=== PATIENT | female | born 1940 | race African-American/Black ===

== ENCOUNTER 2021-11-08 22:26 | Inpatient (IN) | payer MEDICARE, MEDICAID ==
[~2021-11-08] VITALS: Ht 160 cm; Wt 54.4 kg
[~2021-11-08 22:26] MED LIST: ACET650S25 PO; AMLO5TAB88 PO; FERR325T6 MT; HYDR-4135 PO
[2021-11-09] VITALS (8 sets, daily range): BP systolic 136–156; BP diastolic 54–84
[2021-11-09] MEDS ORDERED: SODIUM CHLORIDE 0.9% 1000ML BAG (SEPSIS BOLUS) IV ONE
[2021-11-09 01:36] LABS: HEMATOCRIT. 21.8 % (36.0-48.0); MEAN CORPUSCULAR HEMOGLOBIN 24.1 pg (28.0-32.0); MEAN CORPUSCULAR VOLUME 75.9 fL (81.0-99.0); MEAN PLATELET VOLUME 7.3 fl (7.4-10.4); PLATELET 629 x1000/uL (130-400); RED BLOOD CELL COUNT 2.87 mill/uL (4.2-5.4); RED CELL DISTRIBUTION WIDTH 19.1 % (11.6-14.6)
[2021-11-09 01:40] LABS: HEMOGLOBIN. 6.9 g/dL (12.0-16.0)
[2021-11-09 01:44] LABS: CHLORIDE 104 mEq/L (98-107)
[2021-11-09] MEDS ORDERED: CEFTRIAXONE 1 G PREMIX 50 ML IV ONE (02:30)
[2021-11-09 03:53] LABS: PLATELET ESTIMATE INCREASED
[2021-11-09] MEDS ORDERED: ONDANSETRON HCL 4MG/2ML INJ IV PRN (07:45)
[2021-11-09] MEDS ORDERED: MORPHINE SULFATE 2 MG/ML CPJ (NOT FOR IM USE) IV PRN (07:45)
[2021-11-09] MEDS ORDERED: PIPERACILLIN/TAZ 3.375G PREMIX 50 ML IV NR (08:00)
[2021-11-09] MEDS ORDERED: NALOXONE HCL 0.4MG/ML VIAL IV PRN (08:30)
[2021-11-09] MEDS: PIPERACILLIN/TAZOBACTAM 3.375 G in DEXTROSE 5% WATER 50 ML IV SCH (13:45)
[2021-11-09] MEDS: DEXT 5%/0.45% NACL 1000ML 1,000 ML IV SCH ×2 (13:45→21:05)
[2021-11-09] MEDS ORDERED: PIPERACILLIN/TAZOBACTAM 3.375 G in DEXTROSE 5% WATER 50 ML IV SCH (14:00)
[2021-11-10] VITALS (10 sets, daily range): BP systolic 145–160; BP diastolic 64–83
[2021-11-10] MEDS: PIPERACILLIN/TAZOBACTAM 3.375 G in DEXTROSE 5% WATER 50 ML IV SCH ×4 (01:06→21:26)
[2021-11-10 06:49] LABS: HEMATOCRIT. 24.3 % (36.0-48.0); MEAN CORPUSCULAR HEMOGLOBIN 25.4 pg (28.0-32.0); MEAN CORPUSCULAR VOLUME 76.8 fL (81.0-99.0); MEAN PLATELET VOLUME 7.4 fl (7.4-10.4); PLATELET 543 x1000/uL (130-400); RED BLOOD CELL COUNT 3.17 mill/uL (4.2-5.4)
[2021-11-10 07:25] LABS: CHLORIDE 111 mEq/L (98-107)
[2021-11-10] MEDS: DEXT 5%/0.45% NACL 1000ML 1,000 ML IV SCH ×2 (10:24→23:45)
[2021-11-10 16:28] LABS: PLATELET ESTIMATE INCREASED
[2021-11-10 17:00] LABS: HEMATOCRIT 32.1 % (36.0-48.0); HEMOGLOBIN 10.5 g/dL (12.0-16.0)
[2021-11-10] MEDS ORDERED: POLYMYXIN B SULFATE 500000 UNITS/VIAL ONE (19:48)
[2021-11-10] MEDS ORDERED: BUPIVACAINE HCL 0.5% (5MG/ML) 50ML ONE (19:48)
[2021-11-10] MEDS ORDERED: LIDOCAINE HCL 1% 50ML VIAL (10MG/ML) ONE (19:48)
[2021-11-11] VITALS: BP 155/76
[2021-11-11 04:00] VITALS: BP 153/74
[2021-11-11] MEDS: PIPERACILLIN/TAZOBACTAM 3.375 G in DEXTROSE 5% WATER 50 ML IV SCH ×3 (06:00→21:10)
[2021-11-11 06:30] LABS: HEMATOCRIT. 29.3 % (36.0-48.0); HEMOGLOBIN. 9.6 g/dL (12.0-16.0); MEAN CORPUSCULAR HEMOGLOBIN 25.5 pg (28.0-32.0); MEAN CORPUSCULAR VOLUME 78.1 fL (81.0-99.0); MEAN PLATELET VOLUME 7.4 fl (7.4-10.4); PLATELET 448 x1000/uL (130-400); RED BLOOD CELL COUNT 3.75 mill/uL (4.2-5.4); RED CELL DISTRIBUTION WIDTH 17.5 % (11.6-14.6)
[2021-11-11 07:08] LABS: CHLORIDE 113 mEq/L (98-107)
[2021-11-11 08:00] VITALS: BP 162/83
[2021-11-11] MEDS ORDERED: POTASSIUM CHLORIDE 20MEQ/PACKET PO SCH (09:00)
[2021-11-11 11:51] VITALS: BP 156/69
[2021-11-11] MEDS: AMLODIPINE 10MG TABLET PO SCH (11:52)
[2021-11-11] MEDS: DEXT 5%/0.45% NACL 1000ML 1,000 ML IV SCH (13:44)
[2021-11-11 16:00] VITALS: BP 146/75
[2021-11-11 20:00] VITALS: BP 162/82
[2021-11-11 21:24] LABS: PLATELET ESTIMATE INCREASED
[2021-11-12] VITALS: BP 144/77
[2021-11-12] MEDS: DEXT 5%/0.45% NACL 1000ML 1,000 ML IV SCH ×2 (02:25→15:45)
[2021-11-12 04:00] VITALS: BP 141/82
[2021-11-12 08:00] VITALS: BP 160/88
[2021-11-12] MEDS ORDERED: POTASSIUM CHLORIDE 20MEQ/PACKET PO SCH (09:00)
[2021-11-12] MEDS: AMLODIPINE 10MG TABLET PO SCH (09:29)
[2021-11-12] MEDS: PIPERACILLIN/TAZOBACTAM 3.375 G in DEXTROSE 5% WATER 50 ML IV SCH ×3 (10:22→21:19)
[2021-11-12 12:00] VITALS: BP 163/84
[2021-11-12] MEDS: HYDRALAZINE HCL 50MG TABLET PO SCH ×2 (13:46→21:19)
[2021-11-12 16:00] VITALS: BP 153/73
[2021-11-12 18:40] LABS: CLARITY URINE CLEAR (CLEAR); COLOR URINE YELLOW (YELLOW); KETONES URINE NEGATIVE (NEGATIVE); LEUKOCYTE ESTERASE URINE NEGATIVE (NEGATIVE); NITRITE URINE NEGATIVE (NEGATIVE); OCCULT BLOOD URINE NEGATIVE (NEGATIVE); PH URINE 5.5 (4.5-8.0); PROTEIN URINE TRACE (NEGATIVE); SPECIFIC GRAVITY URINE 1.015 (1.005-1.030); UROBILINOGEN URINE 0.2 E.U./dL (0.2-1.0)
[2021-11-12 20:00] VITALS: BP 143/70
[2021-11-13] VITALS: BP 148/70
[2021-11-13 08:00] VITALS: BP 146/70
[2021-11-13] MEDS: HYDRALAZINE HCL 50MG TABLET PO SCH ×3 (09:00→21:00)
[2021-11-13] MEDS: AMLODIPINE 10MG TABLET PO SCH (09:00)
[2021-11-13 12:00] VITALS: BP 141/60
[2021-11-13] MEDS: PIPERACILLIN/TAZOBACTAM 3.375 G in DEXTROSE 5% WATER 50 ML IV SCH (14:16)
[2021-11-13 16:00] VITALS: BP 149/87
[2021-11-13 18:28] LABS: EOSINOPHILS % 0.2 % (0.0-5.0); HEMOGLOBIN. 9.8 g/dL (12.0-16.0); LYMPHOCYTES % 9.4 % (20.0-50.0); MEAN CORPUSCULAR HEMOGLOBIN 25.7 pg (28.0-32.0); MEAN PLATELET VOLUME 7.1 fl (7.4-10.4); MONOCYTES % 8.3 % (2.0-8.0); NEUTROPHILS % 82.1 % (40.0-76.0); PLATELET 370 x1000/uL (130-400); RED CELL DISTRIBUTION WIDTH 18.6 % (11.6-14.6)
[2021-11-13 18:35] LABS: CHLORIDE 115 mEq/L (98-107)
[2021-11-13] MEDS ORDERED: POTASSIUM CHLORIDE 20MEQ TABLET SR PO NR (19:45)
[2021-11-13 20:00] VITALS: BP 152/77
[2021-11-13] MEDS ORDERED: PROPOFOL 200MG/20ML VIAL IV ONE (21:50)
[2021-11-13] MEDS ORDERED: MIDAZOLAM HCL 2 MG/2 ML VIAL ONE (21:53)
[2021-11-13] MEDS ORDERED: SUCCINYLCHOLINE CHLORIDE 200MG/10ML IV ONE (22:27)
[2021-11-13] MEDS ORDERED: LIDOCAINE HCL 1% 10 MG/ML 10ML VIAL ONE (22:27)
[2021-11-13] MEDS ORDERED: DEXAMETHASONE 4MG/ML 1ML VIAL ONE (22:27)
[2021-11-13] MEDS ORDERED: ONDANSETRON HCL 4MG/2ML INJ ONE (22:27)
[2021-11-13] MEDS ORDERED: SODIUM CHLORIDE 0.9% 1,000 ML IV SCH (22:45)
[2021-11-13] MEDS ORDERED: ATROPINE SULFATE 1MG/10ML SYR IV PRN (22:45)
[2021-11-13] MEDS ORDERED: CEFAZOLIN SODIUM 1000MG/VIAL ONE (22:45)
[2021-11-13] MEDS ORDERED: FENTANYL CITRATE/PF 50MCG/ML 2ML VIAL IV PRN (22:45)
[2021-11-13] MEDS ORDERED: FENTANYL CITRATE/PF 50MCG/ML 2ML VIAL ONE (22:46)
[2021-11-14] MEDS: PIPERACILLIN/TAZOBACTAM 3.375 G in DEXTROSE 5% WATER 50 ML IV SCH ×2 (01:41→06:13)
[2021-11-14 04:00] VITALS: BP 143/68
[2021-11-14 07:12] LABS: HEMATOCRIT. 28.3 % (36.0-48.0); HEMOGLOBIN. 9.3 g/dL (12.0-16.0); MEAN CORPUSCULAR HEMOGLOBIN 26.2 pg (28.0-32.0); MEAN CORPUSCULAR VOLUME 79.3 fL (81.0-99.0); MEAN PLATELET VOLUME 7.5 fl (7.4-10.4); PLATELET 338 x1000/uL (130-400); RED BLOOD CELL COUNT 3.57 mill/uL (4.2-5.4); RED CELL DISTRIBUTION WIDTH 18.6 % (11.6-14.6)
[2021-11-14 07:27] LABS: CHLORIDE 114 mEq/L (98-107)
[2021-11-14 08:00] VITALS: BP 146/77
[2021-11-14] MEDS: AMLODIPINE 10MG TABLET PO SCH (09:25)
[2021-11-14] MEDS: HYDRALAZINE HCL 50MG TABLET PO SCH ×2 (09:25→20:50)
[2021-11-14 12:00] VITALS: BP 122/65
[2021-11-14 16:00] VITALS: BP 138/60
[2021-11-14 20:00] VITALS: BP 158/81
[2021-11-14] MEDS: DEXT 5%/0.45% NACL 1000ML 1,000 ML IV SCH (20:49)
[2021-11-14] MEDS: MULTIVITAMINS,THER W-MINERALS TABLET PO SCH (20:50)
[2021-11-15] VITALS: BP 144/73
[2021-11-15 04:00] VITALS: BP 146/86
[2021-11-15 08:00] VITALS: BP 135/74
[2021-11-15] MEDS: HYDRALAZINE HCL 50MG TABLET PO SCH ×2 (09:12→21:43)
[2021-11-15] MEDS: AMLODIPINE 10MG TABLET PO SCH (09:12)
[2021-11-15] MEDS: MULTIVITAMINS,THER W-MINERALS TABLET PO SCH (09:12)
[2021-11-15] MEDS: DEXT 5%/0.45% NACL 1000ML 1,000 ML IV SCH ×2 (09:13→21:45)
[2021-11-15 12:00] VITALS: BP 127/58
[2021-11-15 14:21] LABS: PLATELET ESTIMATE NORMAL
[2021-11-15 16:00] VITALS: BP 146/80
[2021-11-15] MEDS: PIPERACILLIN/TAZOBACTAM 3.375 G in DEXTROSE 5% WATER 50 ML IV SCH (18:46)
[2021-11-15 20:00] VITALS: BP 132/61
[2021-11-16] VITALS: BP 155/78
[2021-11-16] MEDS: PIPERACILLIN/TAZOBACTAM 3.375 G in DEXTROSE 5% WATER 50 ML IV SCH ×4 (00:38→22:00)
[2021-11-16 04:00] VITALS: BP 126/60
[2021-11-16 08:00] VITALS: BP 105/57
[2021-11-16] MEDS: MULTIVITAMINS,THER W-MINERALS TABLET PO SCH (08:37)
[2021-11-16 12:00] VITALS: BP 137/59
[2021-11-16] MEDS: DEXT 5%/0.45% NACL 1000ML 1,000 ML IV SCH (14:46)
[2021-11-16] MEDS: HYDRALAZINE HCL 50MG TABLET PO SCH ×2 (14:46→20:40)
[2021-11-16] MEDS: AMLODIPINE 10MG TABLET PO SCH (14:46)
[2021-11-16 16:00] VITALS: BP 128/60
[2021-11-16 20:00] VITALS: BP 127/68
[2021-11-16 21:16] LABS: BASOPHILS % 0.2 % (0.0-2.0); EOSINOPHILS % 0.1 % (0.0-5.0); HEMATOCRIT. 26.4 % (36.0-48.0); HEMOGLOBIN. 8.2 g/dL (12.0-16.0); LYMPHOCYTES % 9.1 % (20.0-50.0); MEAN CORPUSCULAR HEMOGLOBIN 25.7 pg (28.0-32.0); MEAN CORPUSCULAR VOLUME 82.3 fL (81.0-99.0); MEAN PLATELET VOLUME 8.4 fl (7.4-10.4); MONOCYTES % 5.9 % (2.0-8.0); NEUTROPHILS % 84.7 % (40.0-76.0); PLATELET 274 x1000/uL (130-400); RED BLOOD CELL COUNT 3.21 mill/uL (4.2-5.4); RED CELL DISTRIBUTION WIDTH 19.8 % (11.6-14.6)
[2021-11-16 21:21] LABS: CHLORIDE 114 mEq/L (98-107)
[2021-11-17] VITALS: BP 121/62
[2021-11-17] MEDS: DEXT 5%/0.45% NACL 1000ML 1,000 ML IV SCH ×2 (02:25→15:45)
[2021-11-17 04:00] VITALS: BP 132/65
[2021-11-17] MEDS: PIPERACILLIN/TAZOBACTAM 3.375 G in DEXTROSE 5% WATER 50 ML IV SCH ×3 (05:35→21:15)
[2021-11-17] MEDS: MULTIVITAMINS,THER W-MINERALS TABLET PO SCH (08:30)
[2021-11-17] MEDS: HYDRALAZINE HCL 50MG TABLET PO SCH ×2 (08:31→21:16)
[2021-11-17] MEDS: AMLODIPINE 10MG TABLET PO SCH (08:31)
[2021-11-17] MEDS: FLUOXETINE HCL 10 MG CAPSULE PO SCH (16:55)
[2021-11-17 18:11] VITALS: BP 125/85
[2021-11-17 20:00] VITALS: BP 130/69
[2021-11-18] VITALS: BP 123/64
[2021-11-18 04:00] VITALS: BP 139/62
[2021-11-18] MEDS: PIPERACILLIN/TAZOBACTAM 3.375 G in DEXTROSE 5% WATER 50 ML IV SCH ×2 (04:55→13:37)
[2021-11-18] MEDS: DEXT 5%/0.45% NACL 1000ML 1,000 ML IV SCH (04:55)
[2021-11-18 07:58] VITALS: BP 135/64
[2021-11-18] MEDS: HYDRALAZINE HCL 50MG TABLET PO SCH (08:36)
[2021-11-18] MEDS: FLUOXETINE HCL 10 MG CAPSULE PO SCH (08:36)
[2021-11-18] MEDS: MULTIVITAMINS,THER W-MINERALS TABLET PO SCH (08:36)
[2021-11-18] MEDS: AMLODIPINE 10MG TABLET PO SCH (08:37)
[2021-11-18] MEDS ORDERED: HYDROXYZINE 10 MG TABLET PO PRN (11:00)
[2021-11-18 11:53] VITALS: BP 132/66
[2021-11-18 15:11] VITALS: BP 138/67
[2021-11-18 16:00] VITALS: BP 130/62
== END 2021-11-18 20:46 | DRG 853 ==
LOC: ER 22:26 → 6WST 23:04 → ENRESERV 11-09 07:15
PROVIDERS: ADMIT Internal Medicine; ATTEND Internal Medicine
PROC: 30233N1 Transfusion of Nonautologous Red Blood Cells into Peripheral Vein, Percutaneous Approach (ICD-10-PCS; 2021-11-09)
PROC: 0KBP0ZZ Excision of Left Hip Muscle, Open Approach (ICD-10-PCS; principal; 2021-11-13)
PROC: 0KBN0ZZ Excision of Right Hip Muscle, Open Approach (ICD-10-PCS; 2021-11-13)
DX: A41.9 Sepsis, unspecified organism (principal); E43 Unspecified severe protein-calorie malnutrition; L89.154 Pressure ulcer of sacral region, stage 4; K63.1 Perforation of intestine (nontraumatic); E87.1 Hypo-osmolality and hyponatremia; C19 Malignant neoplasm of rectosigmoid junction; I96 Gangrene, not elsewhere classified; J44.9 Chronic obstructive pulmonary disease, unspecified; B96.4 Proteus (mirabilis) (morganii) as the cause of diseases classified elsewhere; Z20.822 Contact with and (suspected) exposure to COVID-19; B96.20 Unspecified Escherichia coli [E. coli] as the cause of diseases classified elsewhere; R32 Unspecified urinary incontinence; D50.9 Iron deficiency anemia, unspecified; F41.1 Generalized anxiety disorder; I10 Essential (primary) hypertension; D25.9 Leiomyoma of uterus, unspecified; Z85.3 Personal history of malignant neoplasm of breast; Z86.16 Personal history of COVID-19; Z90.10 Acquired absence of unspecified breast and nipple; Z86.718 Personal history of other venous thrombosis and embolism; Z86.711 Personal history of pulmonary embolism; Z68.21 Body mass index [BMI] 21.0-21.9, adult
CPT/HCPCS: 36415; 71045; 74176; 80048; 80053; 81003; 83605; 84145; 84484; 85014; 85018; 85025; 86850; 86870; 86900; 86920; 87070; 87075; 87076; 87077; 87186; 87426; 93005; 99291; C1893; C9803; J0330; J0690; J0696; J1100; J2250; J2270; J2405; J2543; J2704; J3010; J3490; J7030; J7060; P9016; A4315; A5200

== ENCOUNTER 2021-12-02 23:22 | Inpatient (IN) | payer MEDICARE, MEDICAID ==
[~2021-12-02] VITALS: Ht 160 cm; Wt 47.6 kg
[2021-12-03 00:49] LABS: EOSINOPHILS % 0.3 % (0.0-5.0); HEMOGLOBIN. 7.5 g/dL (12.0-16.0); LYMPHOCYTES % 12.7 % (20.0-50.0); MEAN CORPUSCULAR VOLUME 79.4 fL (81.0-99.0); MONOCYTES % 10.4 % (2.0-8.0); NEUTROPHILS % 76.6 % (40.0-76.0); PLATELET 501 x1000/uL (130-400); RED BLOOD CELL COUNT 3.02 mill/uL (4.2-5.4)
[2021-12-03 00:56] LABS: CHLORIDE 111 mEq/L (98-107)
[2021-12-03 01:42] LABS: INR 1.1; PARTIAL THROMBOPLASTIN TIME 25.9 sec (23.4-31.0); PROTHROMBIN TIME 11.3 sec (9.6-11.0)
[2021-12-03] MEDS ORDERED: ASPIRIN 325MG EC TABLET PO NR (01:45)
[2021-12-03 13:30] VITALS: BP 131/68
[2021-12-03 20:00] VITALS: BP 156/71
[2021-12-03] MEDS ORDERED: GUAIFENESIN 200MG/10ML SUGAR FREE UDC PO PRN (20:15)
[2021-12-03] MEDS ORDERED: ACETAMINOPHEN 325MG TABLET PO PRN (20:15)
[2021-12-03] MEDS ORDERED: MAGNESIUM/ALUMINUM HYDROXIDE/SIMETHICONE 30ML UDC PO PRN (20:15)
[2021-12-03] MEDS ORDERED: DOCUSATE SODIUM 100MG CAPSULE PO PRN (20:15)
[2021-12-03] MEDS ORDERED: ONDANSETRON HCL 4MG/2ML INJ IV PRN (20:15)
[2021-12-03 20:41] LABS: TOTAL IRON BINDING CAPACITY 93 ug/dL (250-450)
[2021-12-03] MEDS: POTASSIUM CHLORIDE 20MEQ TABLET SR PO SCH (22:02)
[2021-12-03] MEDS: HYDRALAZINE HCL 50MG TABLET PO SCH (22:02)
[2021-12-03] MEDS: TRAMADOL 50MG TABLET PO PRN (23:47)
[2021-12-04] VITALS (12 sets, daily range): BP systolic 118–144; BP diastolic 62–78
[2021-12-04 07:20] LABS: EOSINOPHILS % 0.1 % (0.0-5.0); LYMPHOCYTES % 9.7 % (20.0-50.0); MEAN CORPUSCULAR HEMOGLOBIN 24.9 pg (28.0-32.0); MEAN CORPUSCULAR VOLUME 79.4 fL (81.0-99.0); MEAN PLATELET VOLUME 8.1 fl (7.4-10.4); MONOCYTES % 9.1 % (2.0-8.0); NEUTROPHILS % 81.1 % (40.0-76.0); PLATELET 520 x1000/uL (130-400); RED BLOOD CELL COUNT 2.67 mill/uL (4.2-5.4); RED CELL DISTRIBUTION WIDTH 19.5 % (11.6-14.6)
[2021-12-04 07:48] LABS: HEMATOCRIT. 21.2 % (36.0-48.0); HEMOGLOBIN. 6.6 g/dL (12.0-16.0)
[2021-12-04 08:01] LABS: CLARITY URINE CLOUDY (CLEAR); COLOR URINE YELLOW (YELLOW); KETONES URINE NEGATIVE (NEGATIVE); LEUKOCYTE ESTERASE URINE 3+ (NEGATIVE); NITRITE URINE POSITIVE (NEGATIVE); OCCULT BLOOD URINE NEGATIVE (NEGATIVE); PH URINE 5.5 (4.5-8.0); PROTEIN URINE 1+ (NEGATIVE); SPECIFIC GRAVITY URINE 1.013 (1.005-1.030); UROBILINOGEN URINE 0.2 E.U./dL (0.2-1.0)
[2021-12-04 08:47] LABS: CHLORIDE 114 mEq/L (98-107)
[2021-12-04 08:58] LABS: HDL CHOLESTEROL 25 mg/dL (40-59); LDL CHOLESTEROL 49 mg/dL (5-100)
[2021-12-04] MEDS: TRAMADOL 50MG TABLET PO PRN ×2 (09:55→20:25)
[2021-12-04] MEDS: AMLODIPINE 10MG TABLET PO SCH (09:56)
[2021-12-04] MEDS: POTASSIUM CHLORIDE 20MEQ TABLET SR PO SCH (09:56)
[2021-12-04] MEDS: HYDRALAZINE HCL 50MG TABLET PO SCH ×2 (09:59→22:24)
[2021-12-04 10:42] LABS: PHOSPHORUS 2.9 mg/dL (2.5-4.9)
[2021-12-04] MEDS ORDERED: VANCOMYCIN 1GM PMX (XELLIA) 200 ML IV SCH (14:00)
[2021-12-04] MEDS: PIPERACILLIN/TAZOBACTAM 3.375 G in DEXTROSE 5% WATER 50 ML IV SCH ×2 (17:26→22:06)
[2021-12-04 17:59] LABS: HEMATOCRIT 22.7 % (36.0-48.0)
[2021-12-04 18:07] LABS: HEMOGLOBIN 6.9 g/dL (12.0-16.0)
[2021-12-05] VITALS: BP 128/71
[2021-12-05 04:00] VITALS: BP 102/72
[2021-12-05] MEDS: VANCOMYCIN 750MG PMX (XELLIA) 150 ML IV SCH (05:00)
[2021-12-05] MEDS: PIPERACILLIN/TAZOBACTAM 3.375 G in DEXTROSE 5% WATER 50 ML IV SCH ×3 (06:24→23:16)
[2021-12-05 06:58] LABS: HEMATOCRIT 26.6 % (36.0-48.0); MEAN CORPUSCULAR HEMOGLOBIN 26.8 pg (28.0-32.0); MEAN CORPUSCULAR VOLUME 81.5 fL (81.0-99.0); PLATELET 467 x1000/uL (130-400); RED BLOOD CELL COUNT 3.27 mill/uL (4.2-5.4); RED CELL DISTRIBUTION WIDTH 18.3 % (11.6-14.6)
[2021-12-05 07:07] LABS: CHLORIDE 117 mEq/L (98-107)
[2021-12-05 08:00] VITALS: BP 138/69
[2021-12-05] MEDS ORDERED: FLUCONAZOLE 150MG TABLET PO NR (08:00)
[2021-12-05] MEDS: POTASSIUM CHLORIDE 20MEQ TABLET SR PO SCH (08:34)
[2021-12-05] MEDS: AMLODIPINE 10MG TABLET PO SCH (08:38)
[2021-12-05] MEDS: HYDRALAZINE HCL 50MG TABLET PO SCH ×2 (08:39→23:17)
[2021-12-05 08:43] LABS: HEMOGLOBIN 8.8 g/dL (12.0-16.0)
[2021-12-05] MEDS: TRAMADOL 50MG TABLET PO PRN ×2 (08:43→17:42)
[2021-12-05 12:00] VITALS: BP 140/70
[2021-12-05 16:00] VITALS: BP 132/68
[2021-12-05 20:00] VITALS: BP 135/63
[2021-12-05] MEDS ORDERED: NALOXONE HCL 0.4MG/ML VIAL IV PRN (20:15)
[2021-12-06] VITALS: BP 133/77
[2021-12-06] MEDS: VANCOMYCIN 750MG PMX (XELLIA) 150 ML IV SCH ×2 (02:05→15:35)
[2021-12-06] MEDS: PIPERACILLIN/TAZOBACTAM 3.375 G in DEXTROSE 5% WATER 50 ML IV SCH ×3 (07:21→21:00)
[2021-12-06 08:00] VITALS: BP 114/58
[2021-12-06 08:44] LABS: CHLORIDE 114 mEq/L (98-107)
[2021-12-06 08:53] LABS: PHOSPHORUS 2.6 mg/dL (2.5-4.9)
[2021-12-06] MEDS: POTASSIUM CHLORIDE 20MEQ TABLET SR PO SCH (09:00)
[2021-12-06 09:44] LABS: BASOPHILS % 0.1 % (0.0-2.0); EOSINOPHILS % 0.3 % (0.0-5.0); HEMATOCRIT. 27.6 % (36.0-48.0); HEMOGLOBIN. 8.9 g/dL (12.0-16.0); LYMPHOCYTES % 7.7 % (20.0-50.0); MEAN CORPUSCULAR HEMOGLOBIN 26.5 pg (28.0-32.0); MEAN CORPUSCULAR VOLUME 82.2 fL (81.0-99.0); MONOCYTES % 5.7 % (2.0-8.0); NEUTROPHILS % 86.2 % (40.0-76.0); PLATELET 493 x1000/uL (130-400); RED BLOOD CELL COUNT 3.36 mill/uL (4.2-5.4)
[2021-12-06] MEDS: TRAMADOL 50MG TABLET PO PRN (10:06)
[2021-12-06] MEDS: HYDRALAZINE HCL 50MG TABLET PO SCH ×2 (10:07→21:00)
[2021-12-06] MEDS: AMLODIPINE 10MG TABLET PO SCH (10:07)
[2021-12-06 12:00] VITALS: BP 100/60
[2021-12-06] MEDS ORDERED: SODIUM CHLORIDE 0.9% 1000ML BAG (SEPSIS BOLUS) IV ONE (17:15)
[2021-12-06] MEDS ORDERED: SODIUM CHLORIDE 0.9% 1,000 ML IV SCH (17:15)
[2021-12-06 17:48] LABS: HEMATOCRIT. 29.7 % (36.0-48.0); HEMOGLOBIN. 9.3 g/dL (12.0-16.0); MEAN CORPUSCULAR HEMOGLOBIN 25.8 pg (28.0-32.0); MEAN CORPUSCULAR VOLUME 82.6 fL (81.0-99.0); PLATELET 552 x1000/uL (130-400)
[2021-12-06 20:00] VITALS: BP 101/71
[2021-12-06] MEDS ORDERED: SODIUM CHLORIDE 0.9% 1000ML BAG (SEPSIS BOLUS) IV SCH (22:45)
[2021-12-06 23:00] LABS: PLATELET ESTIMATE INCREASED
[2021-12-07 04:00] VITALS: BP 154/76
[2021-12-07] MEDS: VANCOMYCIN 750MG PMX (XELLIA) 150 ML IV SCH ×2 (05:46→18:22)
[2021-12-07] MEDS: PIPERACILLIN/TAZOBACTAM 3.375 G in DEXTROSE 5% WATER 50 ML IV SCH ×3 (06:43→21:04)
[2021-12-07 07:17] LABS: CHLORIDE 117 mEq/L (98-107)
[2021-12-07 08:00] VITALS: BP 111/67
[2021-12-07] MEDS: HYDRALAZINE HCL 50MG TABLET PO SCH ×2 (08:26→21:03)
[2021-12-07] MEDS: POTASSIUM CHLORIDE 20MEQ TABLET SR PO SCH (08:26)
[2021-12-07] MEDS: AMLODIPINE 10MG TABLET PO SCH (08:26)
[2021-12-07] MEDS: TRAMADOL 50MG TABLET PO PRN (10:50)
[2021-12-07] MEDS ORDERED: POTASSIUM CHLORIDE 20MEQ TABLET SR PO NR (11:14)
[2021-12-07 12:00] VITALS: BP 121/60
[2021-12-07] MEDS ORDERED: SODIUM CHLORIDE 0.9% 500 ML IV ONE (12:15)
[2021-12-07] MEDS: HYDROCODONE/APAP 7.5/325MG 1 TAB TABLET PO PRN ×2 (13:08→21:06)
[2021-12-07 16:00] VITALS: BP 118/62
[2021-12-07 18:29] LABS: CREATINE KINASE MB FRACTION 2.8 ng/mL (0.5-3.6)
[2021-12-07 20:00] VITALS: BP 144/79
[2021-12-07] MEDS ORDERED: FAMOTIDINE 20MG/2ML VIAL IV SCH (21:00)
[2021-12-07] MEDS: METOPROLOL TARTRATE 50MG TABLET PO SCH (21:04)
[2021-12-07 23:59] VITALS: BP 112/61
[2021-12-08 03:25] LABS: CHLORIDE 118 mEq/L (98-107)
[2021-12-08 04:00] VITALS: BP 113/59
[2021-12-08] MEDS: VANCOMYCIN 750MG PMX (XELLIA) 150 ML IV SCH ×2 (05:14→18:35)
[2021-12-08 06:44] LABS: BASOPHILS % 0.1 % (0.0-2.0); EOSINOPHILS % 0.7 % (0.0-5.0); HEMATOCRIT. 26.9 % (36.0-48.0); HEMOGLOBIN. 8.5 g/dL (12.0-16.0); LYMPHOCYTES % 10.8 % (20.0-50.0); MEAN CORPUSCULAR HEMOGLOBIN 25.8 pg (28.0-32.0); MEAN CORPUSCULAR VOLUME 82.3 fL (81.0-99.0); MONOCYTES % 6.7 % (2.0-8.0); NEUTROPHILS % 81.7 % (40.0-76.0); PLATELET 477 x1000/uL (130-400); RED BLOOD CELL COUNT 3.27 mill/uL (4.2-5.4); RED CELL DISTRIBUTION WIDTH 19.3 % (11.6-14.6)
[2021-12-08] MEDS: PIPERACILLIN/TAZOBACTAM 3.375 G in DEXTROSE 5% WATER 50 ML IV SCH ×3 (06:49→21:07)
[2021-12-08 08:15] VITALS: BP 121/57
[2021-12-08] MEDS: HYDRALAZINE HCL 50MG TABLET PO SCH ×2 (08:47→20:58)
[2021-12-08] MEDS: METOPROLOL TARTRATE 50MG TABLET PO SCH ×2 (08:47→20:59)
[2021-12-08] MEDS: POTASSIUM CHLORIDE 20MEQ TABLET SR PO SCH (08:47)
[2021-12-08] MEDS: AMLODIPINE 10MG TABLET PO SCH (08:48)
[2021-12-08 12:04] VITALS: BP 107/42
[2021-12-08 16:00] VITALS: BP 107/42
[2021-12-08] MEDS ORDERED: SODIUM HYPOCHLORITE 0.125% 473ML SOLUTION TOP PRN (16:30)
[2021-12-08] MEDS: FAMOTIDINE 20MG TABLET PO SCH (17:11)
[2021-12-08] MEDS: SODIUM HYPOCHLORITE 0.125% 473ML SOLUTION TOP SCH (18:35)
[2021-12-08 20:00] VITALS: BP 102/51
[2021-12-08] MEDS: HYDROCODONE/APAP 7.5/325MG 1 TAB TABLET PO PRN (21:06)
[2021-12-09] VITALS: BP 112/51
[2021-12-09] MEDS: VANCOMYCIN 750MG PMX (XELLIA) 150 ML IV SCH ×2 (05:00→17:08)
[2021-12-09] MEDS: PIPERACILLIN/TAZOBACTAM 3.375 G in DEXTROSE 5% WATER 50 ML IV SCH ×2 (06:30→13:00)
[2021-12-09 07:27] LABS: HEMATOCRIT 26.6 % (36.0-48.0); HEMOGLOBIN 8.4 g/dL (12.0-16.0); MEAN CORPUSCULAR HEMOGLOBIN 25.9 pg (28.0-32.0); MEAN CORPUSCULAR VOLUME 82.2 fL (81.0-99.0); PLATELET 487 x1000/uL (130-400); RED BLOOD CELL COUNT 3.23 mill/uL (4.2-5.4)
[2021-12-09 07:31] LABS: CHLORIDE 118 mEq/L (98-107)
[2021-12-09] MEDS: HYDRALAZINE HCL 50MG TABLET PO SCH ×2 (08:07→23:13)
[2021-12-09] MEDS: METOPROLOL TARTRATE 50MG TABLET PO SCH ×2 (08:08→23:13)
[2021-12-09] MEDS: AMLODIPINE 10MG TABLET PO SCH (08:08)
[2021-12-09 08:32] VITALS: BP 108/48
[2021-12-09] MEDS: POTASSIUM CHLORIDE 20MEQ TABLET SR PO SCH (08:58)
[2021-12-09] MEDS: SODIUM HYPOCHLORITE 0.125% 473ML SOLUTION TOP SCH (08:58)
[2021-12-09 11:57] VITALS: BP 138/64
[2021-12-09 15:45] VITALS: BP 124/61
[2021-12-09] MEDS: FAMOTIDINE 20MG TABLET PO SCH (17:08)
[2021-12-09 20:00] VITALS: BP 111/54
[2021-12-09] MEDS: HYDROCODONE/APAP 7.5/325MG 1 TAB TABLET PO PRN (20:03)
[2021-12-09] MEDS: CEFTRIAXONE 2 G in DEXTROSE 5% WATER 50 ML IV SCH (23:12)
[2021-12-10] VITALS: BP 120/61
[2021-12-10 04:00] VITALS: BP 101/52
[2021-12-10 07:23] LABS: HEMATOCRIT 27.6 % (36.0-48.0); HEMOGLOBIN 8.7 g/dL (12.0-16.0); MEAN CORPUSCULAR HEMOGLOBIN 26.1 pg (28.0-32.0); MEAN CORPUSCULAR VOLUME 82.5 fL (81.0-99.0); PLATELET 391 x1000/uL (130-400); RED BLOOD CELL COUNT 3.34 mill/uL (4.2-5.4); RED CELL DISTRIBUTION WIDTH 19.2 % (11.6-14.6)
[2021-12-10 07:40] LABS: CHLORIDE 117 mEq/L (98-107)
[2021-12-10 08:30] VITALS: BP 140/68
[2021-12-10] MEDS: HYDRALAZINE HCL 50MG TABLET PO SCH ×2 (09:15→20:20)
[2021-12-10] MEDS: POTASSIUM CHLORIDE 20MEQ TABLET SR PO SCH (09:15)
[2021-12-10] MEDS: METOPROLOL TARTRATE 50MG TABLET PO SCH ×2 (09:15→20:20)
[2021-12-10] MEDS: SODIUM HYPOCHLORITE 0.125% 473ML SOLUTION TOP SCH (09:15)
[2021-12-10 16:15] VITALS: BP 122/57
[2021-12-10] MEDS: FAMOTIDINE 20MG TABLET PO SCH (17:32)
[2021-12-10 20:00] VITALS: BP 135/65
[2021-12-10] MEDS: CEFTRIAXONE 2 G in DEXTROSE 5% WATER 50 ML IV SCH (20:20)
[2021-12-11] VITALS: BP 121/57
[2021-12-11 04:00] VITALS: BP 127/76
[2021-12-11 08:20] VITALS: BP 117/51
[2021-12-11] MEDS ORDERED: CLOPIDOGREL 75MG TABLET PO SCH (09:00)
[2021-12-11] MEDS: POTASSIUM CHLORIDE 20MEQ TABLET SR PO SCH (09:01)
[2021-12-11] MEDS: ASPIRIN 81MG TABLET PO SCH (09:02)
[2021-12-11] MEDS: HYDRALAZINE HCL 50MG TABLET PO SCH ×2 (09:02→21:46)
[2021-12-11] MEDS: SODIUM HYPOCHLORITE 0.125% 473ML SOLUTION TOP SCH (09:02)
[2021-12-11] MEDS: METOPROLOL TARTRATE 50MG TABLET PO SCH ×2 (09:04→21:47)
[2021-12-11 12:05] VITALS: BP 120/52
[2021-12-11] MEDS: FAMOTIDINE 20MG TABLET PO SCH (15:32)
[2021-12-11 15:49] VITALS: BP 130/86
[2021-12-11 20:00] VITALS: BP 130/61
[2021-12-11] MEDS: CEFTRIAXONE 2 G in DEXTROSE 5% WATER 50 ML IV SCH (21:46)
[2021-12-12] VITALS: BP 117/53
[2021-12-12 07:14] LABS: HEMATOCRIT 26.7 % (36.0-48.0); HEMOGLOBIN 8.7 g/dL (12.0-16.0); MEAN CORPUSCULAR HEMOGLOBIN 26.5 pg (28.0-32.0); MEAN CORPUSCULAR VOLUME 81.2 fL (81.0-99.0); PLATELET 422 x1000/uL (130-400); RED BLOOD CELL COUNT 3.28 mill/uL (4.2-5.4); RED CELL DISTRIBUTION WIDTH 19.2 % (11.6-14.6)
[2021-12-12 07:17] LABS: CHLORIDE 115 mEq/L (98-107)
[2021-12-12 08:00] VITALS: BP 141/55
[2021-12-12] MEDS ORDERED: POTASSIUM CHLORIDE 20MEQ/PACKET PO SCH (10:30)
[2021-12-12] MEDS: HYDRALAZINE HCL 50MG TABLET PO SCH (10:43)
[2021-12-12] MEDS: METOPROLOL TARTRATE 50MG TABLET PO SCH (10:43)
[2021-12-12] MEDS: ASPIRIN 81MG TABLET PO SCH (10:43)
[2021-12-12] MEDS: SODIUM HYPOCHLORITE 0.125% 473ML SOLUTION TOP SCH (10:44)
[2021-12-12 11:40] VITALS: BP 141/55
[2021-12-12] MEDS ORDERED: POTASSIUM CHLORIDE INJ 40 MEQ in DEXT 5% WATER 250 ML IV ONE (12:00)
== END 2021-12-12 14:42 | DRG 853 ==
LOC: EDUNIT# 23:22 → ER 23:22 → 6WST 12-03 04:50 → ENRESERV 12-03 08:05
PROVIDERS: ADMIT Hospitalist; ATTEND Hospitalist
PROC: 30233N1 Transfusion of Nonautologous Red Blood Cells into Peripheral Vein, Percutaneous Approach (ICD-10-PCS; principal; 2021-12-04)
PROC: 0LBW0ZZ Excision of Left Foot Tendon, Open Approach (ICD-10-PCS; 2021-12-09)
PROC: 0QB10ZZ Excision of Sacrum, Open Approach (ICD-10-PCS; 2021-12-09)
DX: A41.50 Gram-negative sepsis, unspecified (principal); E43 Unspecified severe protein-calorie malnutrition; L89.154 Pressure ulcer of sacral region, stage 4; L89.623 Pressure ulcer of left heel, stage 3; N39.0 Urinary tract infection, site not specified; I47.1 Supraventricular tachycardia; I50.20 Unspecified systolic (congestive) heart failure; Z68.1 Body mass index [BMI] 19.9 or less, adult; D63.8 Anemia in other chronic diseases classified elsewhere; Z20.822 Contact with and (suspected) exposure to COVID-19; F03.90 Unspecified dementia, unspecified severity, without behavioral disturbance, psychotic disturbance, mood disturbance, and anxiety; E87.6 Hypokalemia; I11.0 Hypertensive heart disease with heart failure; E88.09 Other disorders of plasma-protein metabolism, not elsewhere classified; D50.9 Iron deficiency anemia, unspecified; E03.8 Other specified hypothyroidism; I73.9 Peripheral vascular disease, unspecified; B96.89 Other specified bacterial agents as the cause of diseases classified elsewhere; B96.20 Unspecified Escherichia coli [E. coli] as the cause of diseases classified elsewhere; B96.1 Klebsiella pneumoniae [K. pneumoniae] as the cause of diseases classified elsewhere; Z90.11 Acquired absence of right breast and nipple; Z79.899 Other long term (current) drug therapy; Z85.038 Personal history of other malignant neoplasm of large intestine; Z68.20 Body mass index [BMI] 20.0-20.9, adult; Z86.718 Personal history of other venous thrombosis and embolism; Z95.828 Presence of other vascular implants and grafts
CPT/HCPCS: 36415; 71045; 72192; 80048; 80053; 80061; 80202; 81003; 82553; 82728; 83036; 83540; 83550; 83605; 83735; 83880; 84100; 84134; 84145; 84439; 84443; 84484; 85014; 85018; 85025; 85027; 86850; 86870; 86900; 86920; 87077; 87186; 87426; 93005; 93308; 93923; 97162; 97165; 99291; C1893; J0696; J2543; J3370; J3480; J3490; J7060; P9016

== ENCOUNTER 2021-12-25 17:46 | Inpatient (IN) | payer MEDICARE, MEDICAID ==
[~2021-12-25] VITALS: Ht 160 cm; Wt 51.7 kg
[2021-12-25 22:12] LABS: BASOPHILS % 0.1 % (0.0-2.0); EOSINOPHILS % 0.1 % (0.0-5.0); LYMPHOCYTES % 16.9 % (20.0-50.0); MEAN CORPUSCULAR HEMOGLOBIN 26.4 pg (28.0-32.0); MEAN CORPUSCULAR VOLUME 80.9 fL (81.0-99.0); MEAN PLATELET VOLUME 7.4 fl (7.4-10.4); MONOCYTES % 8.6 % (2.0-8.0); NEUTROPHILS % 74.3 % (40.0-76.0); PLATELET 529 x1000/uL (130-400); RED BLOOD CELL COUNT 2.45 mill/uL (4.2-5.4); RED CELL DISTRIBUTION WIDTH 20.2 % (11.6-14.6)
[2021-12-25 22:15] LABS: HEMATOCRIT. 19.8 % (36.0-48.0); HEMOGLOBIN. 6.5 g/dL (12.0-16.0)
[2021-12-25 22:24] LABS: CHLORIDE 104 mEq/L (98-107)
[2021-12-25 22:45] LABS: CLARITY URINE CLOUDY (CLEAR); COLOR URINE YELLOW (YELLOW); KETONES URINE NEGATIVE (NEGATIVE); LEUKOCYTE ESTERASE URINE 1+ (NEGATIVE); NITRITE URINE POSITIVE (NEGATIVE); OCCULT BLOOD URINE NEGATIVE (NEGATIVE); PH URINE 5.5 (4.5-8.0); PROTEIN URINE NEGATIVE (NEGATIVE); SPECIFIC GRAVITY URINE 1.013 (1.005-1.030); UROBILINOGEN URINE 0.2 E.U./dL (0.2-1.0)
[2021-12-25] MEDS ORDERED: CLONIDINE 0.1MG TABLET PO PRN (23:45)
[2021-12-25] MEDS ORDERED: ACETAMINOPHEN 325MG TABLET PO PRN ×2 (23:45)
[2021-12-25] MEDS ORDERED: HYDROCODONE/ACETAMINOPHEN 5/325MG TABLET PO PRN (23:45)
[2021-12-25] MEDS ORDERED: ONDANSETRON HCL 4MG/2ML INJ IV PRN (23:45)
[2021-12-25] MEDS ORDERED: GUAIFENESIN 200MG/10ML SUGAR FREE UDC PO PRN (23:45)
[2021-12-25] MEDS ORDERED: IPRATROPIUM/ALBUTEROL 0.5-3(2.5)MG/3ML NEB NEB PRN (23:45)
[2021-12-25] MEDS ORDERED: MAGNESIUM/ALUMINUM HYDROXIDE/SIMETHICONE 30ML UDC PO PRN (23:45)
[2021-12-25] MEDS ORDERED: CEFTRIAXONE 1 G PREMIX 50 ML IV NR (23:45)
[2021-12-26] VITALS (11 sets, daily range): BP systolic 115–148; BP diastolic 52–85
[2021-12-26 07:39] LABS: CHLORIDE 106 mEq/L (98-107)
[2021-12-26 07:49] LABS: BASOPHILS % 0.1 % (0.0-2.0); EOSINOPHILS % 0.1 % (0.0-5.0); LYMPHOCYTES % 12.1 % (20.0-50.0); MEAN CORPUSCULAR HEMOGLOBIN 26.7 pg (28.0-32.0); MEAN CORPUSCULAR VOLUME 81.3 fL (81.0-99.0); MEAN PLATELET VOLUME 7.8 fl (7.4-10.4); MONOCYTES % 5.2 % (2.0-8.0); NEUTROPHILS % 82.5 % (40.0-76.0); PLATELET 534 x1000/uL (130-400); RED BLOOD CELL COUNT 2.43 mill/uL (4.2-5.4)
[2021-12-26 08:00] LABS: PHOSPHORUS 3.2 mg/dL (2.5-4.9); T4 FREE 1.09 ng/dL (0.76-1.46); TOTAL IRON BINDING CAPACITY 83 ug/dL (250-450)
[2021-12-26 08:14] LABS: HEMATOCRIT. 19.8 % (36.0-48.0); HEMOGLOBIN. 6.5 g/dL (12.0-16.0)
[2021-12-26] MEDS: AMLODIPINE 5MG TABLET PO SCH (09:00)
[2021-12-26] MEDS: HYDRALAZINE HCL 50MG TABLET PO SCH ×2 (09:00→21:28)
[2021-12-26] MEDS: FAMOTIDINE 20MG/2ML VIAL IV SCH (09:00)
[2021-12-26 11:16] LABS: HEMATOCRIT 25.1 % (36.0-48.0); HEMOGLOBIN 8.3 g/dL (12.0-16.0)
[2021-12-26] MEDS: CEFTRIAXONE 1,000 MG in DEXTROSE 5% WATER 50 ML IV SCH (21:29)
[2021-12-26] MEDS ORDERED: METO-539 PO (21:34)
[2021-12-26] MEDS: METOPROLOL TARTRATE 50MG TABLET PO SCH (21:41)
[2021-12-26] MEDS ORDERED: METOPROLOL TARTRATE 50MG TABLET PO SCH (21:45)
[2021-12-27] VITALS: BP 124/67
[2021-12-27 04:00] VITALS: BP 117/63
[2021-12-27 07:00] LABS: CHLORIDE 109 mEq/L (98-107)
[2021-12-27 07:07] LABS: PHOSPHORUS 3.2 mg/dL (2.5-4.9)
[2021-12-27 07:12] LABS: INR 1.1; PARTIAL THROMBOPLASTIN TIME 24.1 sec (23.4-31.0); PROTHROMBIN TIME 11.6 sec (9.6-11.0)
[2021-12-27 07:45] LABS: EOSINOPHILS % 0.1 % (0.0-5.0); HEMATOCRIT. 25.7 % (36.0-48.0); LYMPHOCYTES % 11.6 % (20.0-50.0); MEAN CORPUSCULAR HEMOGLOBIN 28.4 pg (28.0-32.0); MEAN CORPUSCULAR VOLUME 84.5 fL (81.0-99.0); MEAN PLATELET VOLUME 7.9 fl (7.4-10.4); MONOCYTES % 9.7 % (2.0-8.0); NEUTROPHILS % 78.6 % (40.0-76.0); PLATELET 473 x1000/uL (130-400); RED BLOOD CELL COUNT 3.04 mill/uL (4.2-5.4); RED CELL DISTRIBUTION WIDTH 18.8 % (11.6-14.6)
[2021-12-27 07:52] VITALS: BP 129/54
[2021-12-27 08:04] LABS: HEMOGLOBIN. 8.6 g/dL (12.0-16.0)
[2021-12-27] MEDS: AMLODIPINE 5MG TABLET PO SCH (08:06)
[2021-12-27] MEDS: FAMOTIDINE 20MG/2ML VIAL IV SCH (08:07)
[2021-12-27] MEDS: METOPROLOL TARTRATE 50MG TABLET PO SCH ×2 (08:07→20:13)
[2021-12-27] MEDS: HYDRALAZINE HCL 50MG TABLET PO SCH ×2 (08:07→20:12)
[2021-12-27 12:00] VITALS: BP 103/44
[2021-12-27 16:00] VITALS: BP 102/57
[2021-12-27] MEDS: ASCORBIC ACID 500 MG TABLET PO SCH (16:42)
[2021-12-27] MEDS: FERROUS SULFATE 325MG TABLET PO SCH (16:42)
[2021-12-27 20:00] VITALS: BP 114/48
[2021-12-27] MEDS: FAMOTIDINE 20MG TABLET PO SCH (20:16)
[2021-12-27] MEDS: CEFTRIAXONE 1,000 MG in DEXTROSE 5% WATER 50 ML IV SCH (22:40)
[2021-12-28] VITALS: BP 99/60
[2021-12-28 04:00] VITALS: BP 132/55
[2021-12-28 05:43] LABS: BASOPHILS % 0.2 % (0.0-2.0); HEMATOCRIT. 30.3 % (36.0-48.0); LYMPHOCYTES % 16.8 % (20.0-50.0); MEAN CORPUSCULAR HEMOGLOBIN 27.9 pg (28.0-32.0); MEAN CORPUSCULAR VOLUME 84.2 fL (81.0-99.0); MEAN PLATELET VOLUME 8.2 fl (7.4-10.4); MONOCYTES % 10.6 % (2.0-8.0); NEUTROPHILS % 72.4 % (40.0-76.0); PLATELET 431 x1000/uL (130-400); RED CELL DISTRIBUTION WIDTH 18.7 % (11.6-14.6)
[2021-12-28 06:43] LABS: CHLORIDE 110 mEq/L (98-107)
[2021-12-28] MEDS: ASCORBIC ACID 500 MG TABLET PO SCH ×2 (06:51→17:22)
[2021-12-28] MEDS: FERROUS SULFATE 325MG TABLET PO SCH ×2 (06:51→17:22)
[2021-12-28 08:00] VITALS: BP 125/45
[2021-12-28] MEDS: AMLODIPINE 5MG TABLET PO SCH (09:03)
[2021-12-28] MEDS: HYDRALAZINE HCL 50MG TABLET PO SCH ×2 (09:03→21:25)
[2021-12-28] MEDS: METOPROLOL TARTRATE 50MG TABLET PO SCH ×2 (09:03→21:32)
[2021-12-28 12:00] VITALS: BP 132/54
[2021-12-28 20:00] VITALS: BP 140/52
[2021-12-28] MEDS: FAMOTIDINE 20MG TABLET PO SCH (21:24)
[2021-12-28] MEDS: CEFTRIAXONE 1,000 MG in DEXTROSE 5% WATER 50 ML IV SCH (21:26)
[2021-12-29] VITALS: BP 144/67
[2021-12-29 04:00] VITALS: BP 135/68
[2021-12-29 07:35] LABS: EOSINOPHILS % 0.1 % (0.0-5.0); HEMATOCRIT. 27.1 % (36.0-48.0); LYMPHOCYTES % 12.9 % (20.0-50.0); MEAN CORPUSCULAR HEMOGLOBIN 28.1 pg (28.0-32.0); MEAN CORPUSCULAR VOLUME 84.6 fL (81.0-99.0); MEAN PLATELET VOLUME 8.2 fl (7.4-10.4); PLATELET 251 x1000/uL (130-400); RED BLOOD CELL COUNT 3.21 mill/uL (4.2-5.4); RED CELL DISTRIBUTION WIDTH 19.4 % (11.6-14.6)
[2021-12-29 07:50] LABS: CHLORIDE 110 mEq/L (98-107)
[2021-12-29 08:00] VITALS: BP 129/60
[2021-12-29] MEDS: ASCORBIC ACID 500 MG TABLET PO SCH ×2 (08:03→18:25)
[2021-12-29] MEDS: FERROUS SULFATE 325MG TABLET PO SCH ×2 (08:03→18:23)
[2021-12-29] MEDS: HYDRALAZINE HCL 50MG TABLET PO SCH ×2 (09:20→21:08)
[2021-12-29] MEDS: METOPROLOL TARTRATE 50MG TABLET PO SCH ×2 (09:20→21:09)
[2021-12-29] MEDS: AMLODIPINE 5MG TABLET PO SCH (09:20)
[2021-12-29 12:00] VITALS: BP 130/62
[2021-12-29 16:00] VITALS: BP 135/68
[2021-12-29 20:00] VITALS: BP 112/70
[2021-12-29] MEDS ORDERED: NALOXONE HCL 0.4MG/ML VIAL IV PRN (20:00)
[2021-12-29] MEDS: CEFEPIME 2,000 MG in DEXT 5% WATER 100 ML IV SCH (21:00)
[2021-12-29] MEDS: FAMOTIDINE 20MG TABLET PO SCH (21:09)
[2021-12-30] VITALS: BP 117/56
[2021-12-30 04:00] VITALS: BP 128/59
[2021-12-30] MEDS: ASCORBIC ACID 500 MG TABLET PO SCH ×2 (06:47→18:38)
[2021-12-30] MEDS: FERROUS SULFATE 325MG TABLET PO SCH ×2 (06:47→18:38)
[2021-12-30 08:19] VITALS: BP_SYST 106; BP_SYST 132; BP_DIAS 46; BP_DIAS 57
[2021-12-30] MEDS: CEFEPIME 2,000 MG in DEXT 5% WATER 100 ML IV SCH (09:00)
[2021-12-30] MEDS ORDERED: POTASSIUM CHLORIDE 20MEQ TABLET SR PO NR (09:45)
[2021-12-30 12:00] VITALS: BP 143/74
[2021-12-30] MEDS: AMLODIPINE 5MG TABLET PO SCH (13:25)
[2021-12-30] MEDS: HYDRALAZINE HCL 50MG TABLET PO SCH ×2 (13:26→21:04)
[2021-12-30] MEDS: METOPROLOL TARTRATE 50MG TABLET PO SCH ×2 (13:26→21:04)
[2021-12-30 20:00] VITALS: BP 116/50
[2021-12-30] MEDS: FAMOTIDINE 20MG TABLET PO SCH (21:04)
[2021-12-31] VITALS: BP 122/58
[2021-12-31 04:00] VITALS: BP 113/62
[2021-12-31 06:29] LABS: BASOPHILS % 0.1 % (0.0-2.0); EOSINOPHILS % 0.1 % (0.0-5.0); HEMATOCRIT. 24.1 % (36.0-48.0); HEMOGLOBIN. 8.1 g/dL (12.0-16.0); MEAN CORPUSCULAR HEMOGLOBIN 27.9 pg (28.0-32.0); MEAN CORPUSCULAR VOLUME 83.1 fL (81.0-99.0); MEAN PLATELET VOLUME 7.9 fl (7.4-10.4); MONOCYTES % 9.2 % (2.0-8.0); NEUTROPHILS % 76.6 % (40.0-76.0); PLATELET 267 x1000/uL (130-400); RED CELL DISTRIBUTION WIDTH 18.9 % (11.6-14.6)
[2021-12-31 07:06] LABS: CHLORIDE 110 mEq/L (98-107)
[2021-12-31 07:14] LABS: PHOSPHORUS 2.2 mg/dL (2.5-4.9)
[2021-12-31 08:00] VITALS: BP 151/74
[2021-12-31] MEDS: HYDRALAZINE HCL 50MG TABLET PO SCH ×2 (08:07→21:01)
[2021-12-31] MEDS: AMLODIPINE 5MG TABLET PO SCH (08:08)
[2021-12-31] MEDS: ASCORBIC ACID 500 MG TABLET PO SCH ×2 (08:08→16:43)
[2021-12-31] MEDS: FERROUS SULFATE 325MG TABLET PO SCH ×2 (08:08→16:43)
[2021-12-31] MEDS: METOPROLOL TARTRATE 50MG TABLET PO SCH ×2 (08:08→21:00)
[2021-12-31] MEDS: CEFEPIME 2,000 MG in DEXT 5% WATER 100 ML IV SCH ×2 (08:10→22:10)
[2021-12-31 12:00] VITALS: BP 101/55
[2021-12-31 15:38] VITALS: BP 140/69
[2021-12-31 20:00] VITALS: BP 136/76
[2021-12-31] MEDS: FAMOTIDINE 20MG TABLET PO SCH (21:00)
[2022-01-01] VITALS: BP 97/48
[2022-01-01 04:00] VITALS: BP 103/44
[2022-01-01 07:21] LABS: BASOPHILS % 0.1 % (0.0-2.0); HEMATOCRIT. 24.4 % (36.0-48.0); LYMPHOCYTES % 11.9 % (20.0-50.0); MEAN CORPUSCULAR HEMOGLOBIN 27.8 pg (28.0-32.0); MEAN CORPUSCULAR VOLUME 84.9 fL (81.0-99.0); MEAN PLATELET VOLUME 8.1 fl (7.4-10.4); MONOCYTES % 9.5 % (2.0-8.0); NEUTROPHILS % 78.5 % (40.0-76.0); PLATELET 280 x1000/uL (130-400); RED BLOOD CELL COUNT 2.88 mill/uL (4.2-5.4); RED CELL DISTRIBUTION WIDTH 19.5 % (11.6-14.6)
[2022-01-01 07:26] LABS: CHLORIDE 113 mEq/L (98-107)
[2022-01-01 07:43] VITALS: BP 103/46
[2022-01-01] MEDS: ASCORBIC ACID 500 MG TABLET PO SCH ×2 (08:21→16:42)
[2022-01-01] MEDS: FERROUS SULFATE 325MG TABLET PO SCH ×2 (08:21→16:42)
[2022-01-01] MEDS: HYDRALAZINE HCL 50MG TABLET PO SCH ×2 (08:21→21:34)
[2022-01-01] MEDS: CEFEPIME 2,000 MG in DEXT 5% WATER 100 ML IV SCH ×2 (08:21→21:38)
[2022-01-01] MEDS: METOPROLOL TARTRATE 50MG TABLET PO SCH ×2 (08:22→21:34)
[2022-01-01] MEDS: AMLODIPINE 5MG TABLET PO SCH (08:22)
[2022-01-01] MEDS: SODIUM HYPOCHLORITE 0.125% 473ML SOLUTION TOP SCH (11:24)
[2022-01-01 12:00] VITALS: BP 103/48
[2022-01-01 16:00] VITALS: BP 150/60
[2022-01-01 20:00] VITALS: BP 126/71
[2022-01-01] MEDS: FAMOTIDINE 20MG TABLET PO SCH (21:34)
[2022-01-02] VITALS: BP 114/56
[2022-01-02 04:00] VITALS: BP 115/62
[2022-01-02 07:06] LABS: EOSINOPHILS % 0.1 % (0.0-5.0); HEMATOCRIT. 22.2 % (36.0-48.0); HEMOGLOBIN. 7.6 g/dL (12.0-16.0); LYMPHOCYTES % 13.4 % (20.0-50.0); MEAN CORPUSCULAR VOLUME 84.4 fL (81.0-99.0); NEUTROPHILS % 78.5 % (40.0-76.0); PLATELET 278 x1000/uL (130-400); RED BLOOD CELL COUNT 2.63 mill/uL (4.2-5.4); RED CELL DISTRIBUTION WIDTH 18.9 % (11.6-14.6)
[2022-01-02 08:00] VITALS: BP 130/64
[2022-01-02] MEDS: AMLODIPINE 5MG TABLET PO SCH (09:00)
[2022-01-02] MEDS: METOPROLOL TARTRATE 50MG TABLET PO SCH ×2 (09:00→21:14)
[2022-01-02 09:45] LABS: CHLORIDE 115 mEq/L (98-107)
[2022-01-02] MEDS: CEFEPIME 2,000 MG in DEXT 5% WATER 100 ML IV SCH ×2 (10:30→21:15)
[2022-01-02] MEDS: ASCORBIC ACID 500 MG TABLET PO SCH ×2 (10:30→18:18)
[2022-01-02] MEDS: FERROUS SULFATE 325MG TABLET PO SCH ×2 (10:30→18:18)
[2022-01-02] MEDS: HYDRALAZINE HCL 50MG TABLET PO SCH ×2 (10:31→21:14)
[2022-01-02] MEDS: SODIUM HYPOCHLORITE 0.125% 473ML SOLUTION TOP SCH (10:34)
[2022-01-02 12:00] VITALS: BP 131/72
[2022-01-02 16:00] VITALS: BP 130/66
[2022-01-02] MEDS ORDERED: LEVO-65 PO (18:18)
[2022-01-02 20:00] VITALS: BP 128/94
[2022-01-02] MEDS: FAMOTIDINE 20MG TABLET PO SCH (21:13)
[2022-01-03] VITALS: BP 147/80
[2022-01-03 04:00] VITALS: BP 132/65
[2022-01-03 08:00] VITALS: BP 138/68
[2022-01-03] MEDS: HYDRALAZINE HCL 50MG TABLET PO SCH ×2 (09:00→20:33)
[2022-01-03] MEDS: METOPROLOL TARTRATE 50MG TABLET PO SCH ×2 (10:57→20:33)
[2022-01-03] MEDS: CEFEPIME 2,000 MG in DEXT 5% WATER 100 ML IV SCH (10:57)
[2022-01-03] MEDS: ASCORBIC ACID 500 MG TABLET PO SCH ×2 (10:58→18:29)
[2022-01-03] MEDS: AMLODIPINE 5MG TABLET PO SCH (10:58)
[2022-01-03] MEDS: FERROUS SULFATE 325MG TABLET PO SCH ×2 (10:58→18:30)
[2022-01-03] MEDS: SODIUM HYPOCHLORITE 0.125% 473ML SOLUTION TOP SCH (10:59)
[2022-01-03 11:51] LABS: HEMATOCRIT. 25.9 % (36.0-48.0); HEMOGLOBIN. 8.6 g/dL (12.0-16.0); LYMPHOCYTES % 8.2 % (20.0-50.0); MEAN CORPUSCULAR HEMOGLOBIN 28.2 pg (28.0-32.0); MEAN CORPUSCULAR VOLUME 84.4 fL (81.0-99.0); MONOCYTES % 6.9 % (2.0-8.0); NEUTROPHILS % 84.9 % (40.0-76.0); PLATELET 269 x1000/uL (130-400); RED BLOOD CELL COUNT 3.07 mill/uL (4.2-5.4); RED CELL DISTRIBUTION WIDTH 19.6 % (11.6-14.6)
[2022-01-03 12:00] VITALS: BP 131/65
[2022-01-03 12:55] LABS: CHLORIDE 116 mEq/L (98-107)
[2022-01-03] MEDS ORDERED: LEVOFLOXACIN 500MG TABLET PO SCH (14:00)
[2022-01-03 15:06] VITALS: BP 135/65
[2022-01-03 16:00] VITALS: BP 141/70
== END 2022-01-03 21:55 | DRG 853 ==
LOC: ER 17:46 → MICUSO 23:00 → EDBEDREQ 23:04 → 8WST 12-26 01:54
PROVIDERS: ADMIT Internal Medicine; ATTEND Internal Medicine
PROC: 30233N1 Transfusion of Nonautologous Red Blood Cells into Peripheral Vein, Percutaneous Approach (ICD-10-PCS; principal; 2021-12-26)
PROC: 0JBR0ZZ Excision of Left Foot Subcutaneous Tissue and Fascia, Open Approach (ICD-10-PCS; 2021-12-30)
DX: A41.9 Sepsis, unspecified organism (principal); E43 Unspecified severe protein-calorie malnutrition; L89.893 Pressure ulcer of other site, stage 3; L89.154 Pressure ulcer of sacral region, stage 4; I50.23 Acute on chronic systolic (congestive) heart failure; I47.1 Supraventricular tachycardia; R18.8 Other ascites; B37.49 Other urogenital candidiasis; L03.312 Cellulitis of back [any part except buttock and flank]; D50.9 Iron deficiency anemia, unspecified; I11.0 Hypertensive heart disease with heart failure; F03.90 Unspecified dementia, unspecified severity, without behavioral disturbance, psychotic disturbance, mood disturbance, and anxiety; K80.20 Calculus of gallbladder without cholecystitis without obstruction; L89.602 Pressure ulcer of unspecified heel, stage 2; J44.9 Chronic obstructive pulmonary disease, unspecified; B96.5 Pseudomonas (aeruginosa) (mallei) (pseudomallei) as the cause of diseases classified elsewhere; K21.9 Gastro-esophageal reflux disease without esophagitis; R62.7 Adult failure to thrive; D63.8 Anemia in other chronic diseases classified elsewhere; Z79.899 Other long term (current) drug therapy; Z86.711 Personal history of pulmonary embolism; Z66 Do not resuscitate; Z68.20 Body mass index [BMI] 20.0-20.9, adult; Z95.828 Presence of other vascular implants and grafts; Z90.11 Acquired absence of right breast and nipple; Z90.49 Acquired absence of other specified parts of digestive tract; Z85.3 Personal history of malignant neoplasm of breast; Z86.718 Personal history of other venous thrombosis and embolism; Z85.038 Personal history of other malignant neoplasm of large intestine
CPT/HCPCS: 36415; 74176; 80048; 80053; 81003; 82040; 82607; 82728; 82746; 83540; 83550; 83605; 83735; 84100; 84134; 84145; 84439; 84443; 85014; 85018; 85025; 86850; 86900; 86920; 87077; 87106; 87186; 93005; 99291; A6261; C1893; J0692; J0696; J3490; J7060; P9016